=== PATIENT | male | born 1995 | race Two or more races ===

== ENCOUNTER 2024-02-03 08:36 | Emergency (ER) | payer BC, OTHER ==
[~2024-02-03] VITALS: Ht 180.3 cm; Wt 68.5 kg
[2024-02-03 09:05] VITALS: BP 123/79; PULSE 70; RESP 18; TEMP 98.2; O2SAT 99
[2024-02-03] MEDS ORDERED: METH4PAK PO (10:05)
[2024-02-03] MEDS ORDERED: NAPR-746 PO (10:05)
== END 2024-02-03 10:12 | disposition home or self-care (01) ==
LOC: ER 08:36
DX: M54.12 Radiculopathy, cervical region (principal); Z79.899 Other long term (current) drug therapy
CPT/HCPCS: 72040